=== PATIENT | male | born 1980 | race Two or more races ===

== ENCOUNTER → 2017-07-13 | Outpatient (CLI) | payer OTHER | LOC: BRMIMAGING 14:06 | PROVIDERS: ATTEND Internal Medicine | DX: S92.254A Nondisplaced fracture of navicular [scaphoid] of right foot, initial encounter for closed fracture (principal); V83.9XXA Unspecified occupant of special industrial vehicle injured in nontraffic accident, initial encounter | CPT/HCPCS: 73610-PO; 73630-PO ==